=== PATIENT | male | born 1965 | race Two or more races ===

== ENCOUNTER 2021-01-26 10:33 | Inpatient (IN) | payer OTHER, MEDICAID ==
[~2021-01-26] VITALS: Ht 175.3 cm; Wt 93.4 kg
[2021-01-26 11:12] LABS: Basophils # (auto) 0 10 ^3/uL (0-0.2); Basophils % (auto) 0.1 % (0.0-2.0); Eosinophils # (auto) 0 10 ^3/uL (0-0.8); Hematocrit 46.4 % (41.0-53.0); Hemoglobin 15.2 g/dL (13.5-17.5); Lymphocytes # (auto) 0.5 10 ^3/uL (0.4-5.4); Lymphocytes % (auto) 9.7 % (10.0-50.0); Mean Corpuscular Hemoglobin 28.6 pg (28.0-32.0); Mean Corpuscular Hgb Conc. 32.9 g/dL (32.0-36.0); Mean Corpuscular Volume 87.1 fL (80.0-100.0); Monocytes # (auto) 0.3 10 ^3/uL (0-1.3); Monocytes % (auto) 5.2 % (0.0-12.0); Neutrophils # (auto) 4.7 10 ^3/uL (1.6-8.6); Nucleated Red Blood Cells % 0.3 %; Red Blood Cells 5.32 10^6/uL (4.5-5.90); Red Cell Distribution Width 13.6 % (11.8-14.3); White Blood Cell 5.5 10^3/uL (4.4-10.8)
[2021-01-26 11:30] LABS: Anion Gap 8 (5-15); BUN/Creatinine Ratio 12.9; Blood Urea Nitrogen 15 mg/dL (7-18); Calcium 8.1 mg/dL (8.5-10.1); Carbon Dioxide 25 mmol/L (21-32); Chloride 106 mmol/L (98-107); GFR African American 84 mL/min; GFR Non-African American 70 mL/min; Glucose 96 mg/dL (74-106); Magnesium 2.3 mg/dL (1.6-2.6); Potassium 3.7 mmol/L (3.5-5.1); Sodium 139 mmol/L (136-145)
[2021-01-26 11:35] LABS: Alanine Aminotransferase 42 U/L (16-61); Alkaline Phosphatase 104 U/L (45-117); Aspartate Aminotransferase 42 U/L (15-37); Bilirubin, Total 0.4 mg/dL (0.2-1.0); Total Protein 7.6 g/dL (6.4-8.2)
[2021-01-26] MEDS ORDERED: SODIUM CHLORIDE 0.9% 1,000 ML IV ONE (14:30)
[2021-01-26] MEDS ORDERED: CHOLECALCIFEROL (VITD3) 2,000 UNIT CAP/TAB PO ONE ×2 (14:45→17:15)
[2021-01-26] MEDS ORDERED: ZINC SULFATE 220mg CAP or TAB PO ONE (14:45)
[2021-01-26] MEDS ORDERED: DexAMETHasone SOD PHOS 10MG/1ML VIAL INJ IV ONE ×2 (14:45→17:15)
[2021-01-26] MEDS ORDERED: cefTRIAXone 1GM/50ML D5W 50 ML IV ONE ×2 (14:45→17:15)
[2021-01-26] MEDS ORDERED: ASCORBIC ACID 500 MG TAB PO ONE ×2 (14:45→17:15)
[2021-01-26] MEDS ORDERED: AZITHROMYCIN 500MG/ 250ML 250 ML IV ONE ×2 (14:45→17:15)
[2021-01-26 15:25] LABS: INR 0.99 (0.9-1.15); Partial Thromboplastin Time 27.3 sec (23.6-33.0)
[2021-01-26 17:25] LABS: Urine Bacteria FEW /hpf (None Seen); Urine Blood Negative /uL (Negative); Urine Hyaline Cast FEW /lpf (0 - 2); Urine Mucus FEW (None Seen); Urine Specific Gravity 1.029 (1.001-1.035); Urine WBC 5 /hpf (0 - 3)
[2021-01-26] MEDS ORDERED: hydrOXYchloroQUINE SULFATE 200 MG TAB PO ONE (18:45)
[2021-01-26] MEDS ORDERED: ONDANSETRON HCL 4 MG/2 ML VIAL IV PRN (21:00)
[2021-01-26] MEDS ORDERED: TEMAZEPAM 15 MG CAP PO PRN (21:00)
[2021-01-26] MEDS ORDERED: NITROGLYCERIN 0.4 MG SL TAB SL PRN (21:00)
[2021-01-26] MEDS ORDERED: ACETAMINOPHEN 500 MG TAB PO PRN (21:00)
[2021-01-26] MEDS ORDERED: MORPHINE SULFATE INJECTION 2 MG/ML SYRG IV PRN (21:00)
[2021-01-26] MEDS ORDERED: REMDESIVIR PER PHARMACY 0 ML IV SCH (21:00)
[2021-01-26] MEDS: BUDESONIDE (INHALATION) 180 MCG IH IN SCH (22:00)
[2021-01-26] MEDS: ENOXAPARIN SOD 40 MG/0.4 ML SYRINGE SC SCH (22:47)
[2021-01-26] MEDS: ATORVASTATIN 20 MG TAB PO SCH (22:47)
[2021-01-27 06:06] LABS: Basophils # (auto) 0 10 ^3/uL (0-0.2); Basophils % (auto) 0.4 % (0.0-2.0); Eosinophils # (auto) 0 10 ^3/uL (0-0.8); Lymphocytes # (auto) 0.4 10 ^3/uL (0.4-5.4); Lymphocytes % (auto) 9.1 % (10.0-50.0); Mean Corpuscular Hemoglobin 28.8 pg (28.0-32.0); Mean Corpuscular Hgb Conc. 33.4 g/dL (32.0-36.0); Mean Corpuscular Volume 86.3 fL (80.0-100.0); Monocytes # (auto) 0.5 10 ^3/uL (0-1.3); Monocytes % (auto) 9.4 % (0.0-12.0); Neutrophils % (auto) 81.1 % (37.0-80.0); Nucleated Red Blood Cells % 0.2 %; Red Blood Cells 5.21 10^6/uL (4.5-5.90); Red Cell Distribution Width 13.7 % (11.8-14.3); White Blood Cell 4.9 10^3/uL (4.4-10.8)
[2021-01-27 06:43] LABS: Chloride 109 mmol/L (98-107); Potassium 4.1 mmol/L (3.5-5.1); Sodium 139 mmol/L (136-145)
[2021-01-27 06:48] LABS: Alanine Aminotransferase 47 U/L (16-61); Albumin 2.9 g/dL (3.4-5.0); Anion Gap 10 (5-15); Aspartate Aminotransferase 46 U/L (15-37); BUN/Creatinine Ratio 15.7; Blood Urea Nitrogen 14 mg/dL (7-18); Calcium 8.3 mg/dL (8.5-10.1); Carbon Dioxide 20 mmol/L (21-32); GFR African American 115 mL/min; GFR Non-African American 95 mL/min; Glucose 129 mg/dL (74-106)
[2021-01-27 06:51] LABS: Alkaline Phosphatase 108 U/L (45-117); Bilirubin, Total 0.4 mg/dL (0.2-1.0); Total Protein 7.7 g/dL (6.4-8.2)
[2021-01-27] MEDS: LEVOTHYROXINE SODIUM 100 MCG TAB PO SCH (07:00)
[2021-01-27] MEDS ORDERED: REMDESIVIR 200 MG in NS 210ml LOADING DOSE ADULT IV ONE (08:00)
[2021-01-27] MEDS: cefTRIAXone 1GM/50ML D5W 50 ML IV SCH (08:52)
[2021-01-27] MEDS: ALBUTEROL SULF HFA 90MCG INH 200DOSE IN PRN ×3 (10:38→18:49)
[2021-01-27] MEDS: BUDESONIDE (INHALATION) 180 MCG IH IN SCH ×2 (10:38→18:30)
[2021-01-27] MEDS: DexAMETHasone SOD PHOS 10MG/1ML VIAL INJ IV SCH (12:00)
[2021-01-27] MEDS: CHOLECALCIFEROL (VITD3) 2,000 UNIT CAP/TAB PO SCH (12:00)
[2021-01-27] MEDS: ZINC SULFATE 220mg CAP or TAB PO SCH (12:00)
[2021-01-27] MEDS: ENOXAPARIN SOD 40 MG/0.4 ML SYRINGE SC SCH ×2 (12:00→22:27)
[2021-01-27] MEDS: AZITHROMYCIN 500MG/ 250ML 250 ML IV SCH (12:00)
[2021-01-27] MEDS: amLODIPine BESYLATE 5 MG TAB PO SCH (12:00)
[2021-01-27] MEDS: ASCORBIC ACID 1,000 MG TAB PO SCH (12:00)
[2021-01-27] MEDS ORDERED: LORazepam 2MG/ML-1ML VIAL IV PRN (13:00)
[2021-01-27 22:00] VITALS: BP 128/74
[2021-01-27] MEDS ORDERED: FLUT50SP NAS (22:25)
[2021-01-27] MEDS ORDERED: AMLO-489 PO (22:25)
[2021-01-27] MEDS ORDERED: BECL80AE11 INH (22:25)
[2021-01-27] MEDS ORDERED: LEVO100T8 PO (22:25)
[2021-01-27] MEDS ORDERED: ATOR20TA50 PO (22:25)
[2021-01-27] MEDS ORDERED: ARIP5TAB36 PO (22:25)
[2021-01-27] MEDS ORDERED: CLON0.5T10 PO (22:25)
[2021-01-27] MEDS ORDERED: SECU1INJ SC (22:25)
[2021-01-27] MEDS ORDERED: PARO1TAB33 PO (22:25)
[2021-01-27] MEDS ORDERED: CETI-120 PO (22:25)
[2021-01-27] MEDS: ATORVASTATIN 20 MG TAB PO SCH (22:27)
[2021-01-27] MEDS: ARIPIPRAZOLE 5 MG PO SCH (22:41)
[2021-01-27] MEDS: PARoxetine 20 MG TAB PO SCH (23:27)
[2021-01-28 05:00] VITALS: BP 134/91
[2021-01-28] MEDS: LEVOTHYROXINE SODIUM 100 MCG TAB PO SCH (06:38)
[2021-01-28] MEDS: BUDESONIDE (INHALATION) 180 MCG IH IN SCH ×2 (07:07→21:49)
[2021-01-28] MEDS: ALBUTEROL SULF HFA 90MCG INH 200DOSE IN PRN ×2 (07:07→21:49)
[2021-01-28] MEDS: cefTRIAXone 1GM/50ML D5W 50 ML IV SCH (08:44)
[2021-01-28 09:00] VITALS: BP 120/76
[2021-01-28] MEDS: PANTOPRAZOLE 40 MG TAB PO SCH (09:09)
[2021-01-28] MEDS: DexAMETHasone SOD PHOS 10MG/1ML VIAL INJ IV SCH (09:09)
[2021-01-28] MEDS: amLODIPine BESYLATE 5 MG TAB PO SCH (09:09)
[2021-01-28] MEDS: ZINC SULFATE 220mg CAP or TAB PO SCH (09:09)
[2021-01-28] MEDS: ENOXAPARIN SOD 40 MG/0.4 ML SYRINGE SC SCH ×2 (09:10→21:45)
[2021-01-28] MEDS: CHOLECALCIFEROL (VITD3) 2,000 UNIT CAP/TAB PO SCH (09:10)
[2021-01-28] MEDS: ASCORBIC ACID 1,000 MG TAB PO SCH (09:10)
[2021-01-28] MEDS: AZITHROMYCIN 500MG/ 250ML 250 ML IV SCH (10:53)
[2021-01-28 13:00] VITALS: BP 138/83
[2021-01-28] MEDS: REMDESIVIR 100mg 100 MG in SODIUM CHL 0.9% 230 ML IV SCH (15:37)
[2021-01-28 17:00] VITALS: BP 123/77
[2021-01-28] MEDS: ATORVASTATIN 20 MG TAB PO SCH (21:45)
[2021-01-28] MEDS: ARIPIPRAZOLE 5 MG PO SCH (21:45)
[2021-01-28] MEDS: PARoxetine 20 MG TAB PO SCH (21:45)
[2021-01-28] MEDS: clonazePAM 0.5 MG TAB PO PRN (21:48)
[2021-01-28 22:00] VITALS: BP 140/87
[2021-01-28] MEDS ORDERED: TOCILIZUMAB 400 MG in SODIUM CHL 0.9% 80 ML IV SCH (22:00)
[2021-01-29 05:00] VITALS: BP 148/78
[2021-01-29] MEDS: LEVOTHYROXINE SODIUM 100 MCG TAB PO SCH (06:43)
[2021-01-29 06:48] LABS: Basophils # (auto) 0 10 ^3/uL (0-0.2); Basophils % (auto) 0.1 % (0.0-2.0); Eosinophils # (auto) 0 10 ^3/uL (0-0.8); Hematocrit 46.3 % (41.0-53.0); Hemoglobin 15.6 g/dL (13.5-17.5); Lymphocytes # (auto) 0.5 10 ^3/uL (0.4-5.4); Lymphocytes % (auto) 7.1 % (10.0-50.0); Mean Corpuscular Hgb Conc. 33.6 g/dL (32.0-36.0); Mean Corpuscular Volume 86.1 fL (80.0-100.0); Monocytes # (auto) 0.7 10 ^3/uL (0-1.3); Monocytes % (auto) 8.6 % (0.0-12.0); Neutrophils # (auto) 6.4 10 ^3/uL (1.6-8.6); Neutrophils % (auto) 84.2 % (37.0-80.0); Nucleated Red Blood Cells % 0.2 %; Red Blood Cells 5.38 10^6/uL (4.5-5.90); Red Cell Distribution Width 13.8 % (11.8-14.3); White Blood Cell 7.6 10^3/uL (4.4-10.8)
[2021-01-29 06:55] LABS: Ferritin 680.3 ng/mL (10-322); Free T4 (Free Thyroxine) 0.91 ng/dL (0.89-1.76)
[2021-01-29 07:02] LABS: Albumin 2.7 g/dL (3.4-5.0); BUN/Creatinine Ratio 19.2; Bilirubin, Total 0.5 mg/dL (0.2-1.0); CRP High Sensitivity 4.24 mg/dL (< 0.3); Calcium 8.5 mg/dL (8.5-10.1); Total Protein 7.3 g/dL (6.4-8.2)
[2021-01-29] MEDS: ALBUTEROL SULF HFA 90MCG INH 200DOSE IN PRN ×2 (07:20→22:14)
[2021-01-29] MEDS: BUDESONIDE (INHALATION) 180 MCG IH IN SCH ×2 (07:21→22:14)
[2021-01-29 09:00] VITALS: BP 130/83
[2021-01-29] MEDS: amLODIPine BESYLATE 5 MG TAB PO SCH (09:46)
[2021-01-29] MEDS: DexAMETHasone SOD PHOS 10MG/1ML VIAL INJ IV SCH (09:46)
[2021-01-29] MEDS: ZINC SULFATE 220mg CAP or TAB PO SCH (09:46)
[2021-01-29] MEDS: cefTRIAXone 1GM/50ML D5W 50 ML IV SCH (09:46)
[2021-01-29] MEDS: CHOLECALCIFEROL (VITD3) 2,000 UNIT CAP/TAB PO SCH (09:47)
[2021-01-29] MEDS: ASCORBIC ACID 1,000 MG TAB PO SCH (09:47)
[2021-01-29] MEDS: PANTOPRAZOLE 40 MG TAB PO SCH (09:47)
[2021-01-29] MEDS: ENOXAPARIN SOD 40 MG/0.4 ML SYRINGE SC SCH ×2 (09:47→21:29)
[2021-01-29] MEDS: AZITHROMYCIN 500MG/ 250ML 250 ML IV SCH (10:49)
[2021-01-29] MEDS ORDERED: FUROSEMIDE 20 MG/2 ML VIAL IV ONE (11:15)
[2021-01-29] MEDS ORDERED: POTASSIUM CHL 20 Meq TABLET PO ONE (11:15)
[2021-01-29 13:00] VITALS: BP 109/75
[2021-01-29] MEDS: REMDESIVIR 100mg 100 MG in SODIUM CHL 0.9% 230 ML IV SCH (15:29)
[2021-01-29 17:00] VITALS: BP 130/75
[2021-01-29] MEDS: ARIPIPRAZOLE 5 MG PO SCH (21:26)
[2021-01-29] MEDS: ATORVASTATIN 20 MG TAB PO SCH (21:29)
[2021-01-29] MEDS: PARoxetine 20 MG TAB PO SCH (21:29)
[2021-01-29] MEDS: clonazePAM 0.5 MG TAB PO PRN (21:30)
[2021-01-29 22:00] VITALS: BP 139/84
[2021-01-30 05:00] VITALS: BP 133/80
[2021-01-30] MEDS: LEVOTHYROXINE SODIUM 100 MCG TAB PO SCH (06:18)
[2021-01-30 07:28] LABS: Basophils # (auto) 0 10 ^3/uL (0-0.2); Basophils % (auto) 0.1 % (0.0-2.0); Eosinophils # (auto) 0 10 ^3/uL (0-0.8); Hemoglobin 16.5 g/dL (13.5-17.5); Lymphocytes # (auto) 0.6 10 ^3/uL (0.4-5.4); Lymphocytes % (auto) 5.3 % (10.0-50.0); Mean Corpuscular Hemoglobin 28.3 pg (28.0-32.0); Mean Corpuscular Hgb Conc. 32.4 g/dL (32.0-36.0); Mean Corpuscular Volume 87.4 fL (80.0-100.0); Monocytes # (auto) 0.8 10 ^3/uL (0-1.3); Monocytes % (auto) 6.9 % (0.0-12.0); Neutrophils % (auto) 87.7 % (37.0-80.0); Nucleated Red Blood Cells % 0.3 %; Red Blood Cells 5.84 10^6/uL (4.5-5.90); Red Cell Distribution Width 13.4 % (11.8-14.3); White Blood Cell 11.4 10^3/uL (4.4-10.8)
[2021-01-30 07:38] LABS: Albumin 2.6 g/dL (3.4-5.0); Calcium 8.4 mg/dL (8.5-10.1); Potassium 4.3 mmol/L (3.5-5.1)
[2021-01-30 07:41] LABS: Bilirubin, Total 0.5 mg/dL (0.2-1.0)
[2021-01-30 08:00] LABS: BUN/Creatinine Ratio 23.2; CRP High Sensitivity 2.7 mg/dL (< 0.3)
[2021-01-30 09:14] VITALS: BP 123/80
[2021-01-30] MEDS: ZINC SULFATE 220mg CAP or TAB PO SCH (09:32)
[2021-01-30] MEDS: cefTRIAXone 1GM/50ML D5W 50 ML IV SCH (09:32)
[2021-01-30] MEDS: DexAMETHasone SOD PHOS 10MG/1ML VIAL INJ IV SCH (09:32)
[2021-01-30] MEDS: PANTOPRAZOLE 40 MG TAB PO SCH (09:34)
[2021-01-30] MEDS: CHOLECALCIFEROL (VITD3) 2,000 UNIT CAP/TAB PO SCH (09:34)
[2021-01-30] MEDS: amLODIPine BESYLATE 5 MG TAB PO SCH (09:34)
[2021-01-30] MEDS: ASCORBIC ACID 1,000 MG TAB PO SCH (09:34)
[2021-01-30] MEDS: ENOXAPARIN SOD 40 MG/0.4 ML SYRINGE SC SCH ×2 (09:35→22:20)
[2021-01-30] MEDS: BUDESONIDE (INHALATION) 180 MCG IH IN SCH ×2 (09:46→22:50)
[2021-01-30] MEDS: ALBUTEROL SULF HFA 90MCG INH 200DOSE IN PRN ×2 (09:46→23:59)
[2021-01-30] MEDS ORDERED: SALINE 0.65 % NASAL SPRAY 45ML BOTTLE EACHNOSTRI ONE (11:00)
[2021-01-30] MEDS ORDERED: FUROSEMIDE 20 MG/2 ML VIAL IV ONE (11:00)
[2021-01-30] MEDS ORDERED: POTASSIUM CHL 20 Meq TABLET PO ONE (11:00)
[2021-01-30] MEDS: AZITHROMYCIN 500MG/ 250ML 250 ML IV SCH (11:12)
[2021-01-30 13:00] VITALS: BP 122/77
[2021-01-30] MEDS: REMDESIVIR 100mg 100 MG in SODIUM CHL 0.9% 230 ML IV SCH (16:01)
[2021-01-30 17:00] VITALS: BP 127/81
[2021-01-30] MEDS: SALINE 0.65 % NASAL SPRAY 45ML BOTTLE EACHNOSTRI SCH ×2 (17:44→22:20)
[2021-01-30] MEDS: ARIPIPRAZOLE 5 MG PO SCH (22:20)
[2021-01-30] MEDS: clonazePAM 0.5 MG TAB PO PRN (22:20)
[2021-01-30] MEDS: ATORVASTATIN 20 MG TAB PO SCH (22:20)
[2021-01-30] MEDS: PARoxetine 20 MG TAB PO SCH (22:20)
[2021-01-31 05:00] VITALS: BP 120/67
[2021-01-31] MEDS: SALINE 0.65 % NASAL SPRAY 45ML BOTTLE EACHNOSTRI SCH ×4 (06:00→21:34)
[2021-01-31] MEDS: LEVOTHYROXINE SODIUM 100 MCG TAB PO SCH (06:31)
[2021-01-31] MEDS: BUDESONIDE (INHALATION) 180 MCG IH IN SCH ×2 (07:00→22:00)
[2021-01-31] MEDS: ALBUTEROL SULF HFA 90MCG INH 200DOSE IN PRN (07:01)
[2021-01-31 09:00] VITALS: BP 113/62
[2021-01-31] MEDS: ASCORBIC ACID 1,000 MG TAB PO SCH (10:00)
[2021-01-31] MEDS: DexAMETHasone SOD PHOS 10MG/1ML VIAL INJ IV SCH (10:12)
[2021-01-31] MEDS: cefTRIAXone 1GM/50ML D5W 50 ML IV SCH (10:12)
[2021-01-31] MEDS: ZINC SULFATE 220mg CAP or TAB PO SCH (10:13)
[2021-01-31] MEDS: PANTOPRAZOLE 40 MG TAB PO SCH (10:13)
[2021-01-31] MEDS: AZITHROMYCIN 500MG/ 250ML 250 ML IV SCH (10:13)
[2021-01-31] MEDS: amLODIPine BESYLATE 5 MG TAB PO SCH (10:13)
[2021-01-31] MEDS: CHOLECALCIFEROL (VITD3) 2,000 UNIT CAP/TAB PO SCH (10:14)
[2021-01-31] MEDS: ENOXAPARIN SOD 40 MG/0.4 ML SYRINGE SC SCH ×2 (10:14→21:33)
[2021-01-31 13:00] VITALS: BP 109/74
[2021-01-31 17:00] VITALS: BP 134/75
[2021-01-31] MEDS ORDERED: TOCILIZUMAB 400 MG in SODIUM CHL 0.9% 80 ML IV ONE (17:00)
[2021-01-31] MEDS: REMDESIVIR 100mg 100 MG in SODIUM CHL 0.9% 230 ML IV SCH (17:11)
[2021-01-31] MEDS: PARoxetine 20 MG TAB PO SCH (21:33)
[2021-01-31] MEDS: ATORVASTATIN 20 MG TAB PO SCH (21:33)
[2021-01-31] MEDS: ARIPIPRAZOLE 5 MG PO SCH ×2 (21:38→22:26)
[2021-01-31 22:00] VITALS: BP 119/83
[2021-02-01 05:00] VITALS: BP 130/83
[2021-02-01] MEDS: LEVOTHYROXINE SODIUM 100 MCG TAB PO SCH (06:22)
[2021-02-01] MEDS: SALINE 0.65 % NASAL SPRAY 45ML BOTTLE EACHNOSTRI SCH ×4 (06:22→21:58)
[2021-02-01] MEDS: ALBUTEROL SULF HFA 90MCG INH 200DOSE IN PRN ×2 (06:56→22:35)
[2021-02-01] MEDS: BUDESONIDE (INHALATION) 180 MCG IH IN SCH ×2 (06:56→22:00)
[2021-02-01 09:00] VITALS: BP 124/82
[2021-02-01] MEDS: cefTRIAXone 1GM/50ML D5W 50 ML IV SCH (09:50)
[2021-02-01] MEDS: ZINC SULFATE 220mg CAP or TAB PO SCH (09:51)
[2021-02-01] MEDS: PANTOPRAZOLE 40 MG TAB PO SCH (09:51)
[2021-02-01] MEDS: DexAMETHasone SOD PHOS 10MG/1ML VIAL INJ IV SCH (09:51)
[2021-02-01] MEDS: amLODIPine BESYLATE 5 MG TAB PO SCH (09:51)
[2021-02-01] MEDS: ASCORBIC ACID 1,000 MG TAB PO SCH (09:52)
[2021-02-01] MEDS: CHOLECALCIFEROL (VITD3) 2,000 UNIT CAP/TAB PO SCH (09:52)
[2021-02-01] MEDS: ENOXAPARIN SOD 40 MG/0.4 ML SYRINGE SC SCH ×2 (09:52→21:36)
[2021-02-01] MEDS ORDERED: TOCILIZUMAB 400 MG in SODIUM CHL 0.9% 80 ML IV ONE (10:00)
[2021-02-01 13:00] VITALS: BP 119/77
[2021-02-01 17:00] VITALS: BP 122/82
[2021-02-01] MEDS ORDERED: FUROSEMIDE 40 MG/4 ML VIAL IV ONE (17:30)
[2021-02-01] MEDS ORDERED: POTASSIUM EFFERVESENT TAB 25 MEQ PO ONE (17:30)
[2021-02-01] MEDS: PARoxetine 20 MG TAB PO SCH (21:36)
[2021-02-01] MEDS: ATORVASTATIN 20 MG TAB PO SCH (21:36)
[2021-02-01] MEDS: ARIPIPRAZOLE 5 MG PO SCH (21:36)
[2021-02-01 22:00] VITALS: BP 114/66
[2021-02-02 05:00] VITALS: BP 118/75
[2021-02-02] MEDS: SALINE 0.65 % NASAL SPRAY 45ML BOTTLE EACHNOSTRI SCH ×4 (06:00→21:57)
[2021-02-02] MEDS: LEVOTHYROXINE SODIUM 100 MCG TAB PO SCH (06:33)
[2021-02-02 06:50] LABS: Basophils # (auto) 0 10 ^3/uL (0-0.2); Basophils % (auto) 0.1 % (0.0-2.0); Eosinophils # (auto) 0.1 10 ^3/uL (0-0.8); Eosinophils % (auto) 0.7 % (0.0-7.0); Hematocrit 47.9 % (41.0-53.0); Hemoglobin 16.4 g/dL (13.5-17.5); Lymphocytes # (auto) 0.4 10 ^3/uL (0.4-5.4); Lymphocytes % (auto) 4.3 % (10.0-50.0); Mean Corpuscular Hemoglobin 29.3 pg (28.0-32.0); Mean Corpuscular Hgb Conc. 34.2 g/dL (32.0-36.0); Mean Corpuscular Volume 85.6 fL (80.0-100.0); Monocytes # (auto) 0.3 10 ^3/uL (0-1.3); Neutrophils # (auto) 8.5 10 ^3/uL (1.6-8.6); Neutrophils % (auto) 91.9 % (37.0-80.0); Nucleated Red Blood Cells % 0.1 %; Red Cell Distribution Width 13.4 % (11.8-14.3); White Blood Cell 9.2 10^3/uL (4.4-10.8)
[2021-02-02 07:02] LABS: Potassium 4.4 mmol/L (3.5-5.1)
[2021-02-02 07:30] LABS: Calcium 8.7 mg/dL (8.5-10.1)
[2021-02-02] MEDS: cefTRIAXone 1GM/50ML D5W 50 ML IV SCH (08:56)
[2021-02-02 09:00] VITALS: BP 109/75
[2021-02-02] MEDS: DexAMETHasone SOD PHOS 10MG/1ML VIAL INJ IV SCH (10:25)
[2021-02-02] MEDS: ZINC SULFATE 220mg CAP or TAB PO SCH (10:27)
[2021-02-02] MEDS: FUROSEMIDE 40 MG/4 ML VIAL IV SCH (10:27)
[2021-02-02] MEDS: CHOLECALCIFEROL (VITD3) 2,000 UNIT CAP/TAB PO SCH (10:28)
[2021-02-02] MEDS: ASCORBIC ACID 1,000 MG TAB PO SCH (10:28)
[2021-02-02] MEDS: ENOXAPARIN SOD 40 MG/0.4 ML SYRINGE SC SCH ×2 (10:28→21:50)
[2021-02-02] MEDS: amLODIPine BESYLATE 5 MG TAB PO SCH (10:28)
[2021-02-02] MEDS: PANTOPRAZOLE 40 MG TAB PO SCH (10:28)
[2021-02-02] MEDS: POTASSIUM EFFERVESENT TAB 25 MEQ PO SCH (11:02)
[2021-02-02] MEDS: BUDESONIDE (INHALATION) 180 MCG IH IN SCH ×2 (11:37→21:58)
[2021-02-02] MEDS: ALBUTEROL SULF HFA 90MCG INH 200DOSE IN PRN ×2 (11:38→21:58)
[2021-02-02 13:00] VITALS: BP 116/72
[2021-02-02 17:00] VITALS: BP 131/91
[2021-02-02] MEDS: ARIPIPRAZOLE 5 MG PO SCH (21:49)
[2021-02-02] MEDS: ATORVASTATIN 20 MG TAB PO SCH (21:50)
[2021-02-02] MEDS: PARoxetine 20 MG TAB PO SCH (21:57)
[2021-02-02 22:00] VITALS: BP 124/79
[2021-02-03 05:00] VITALS: BP 110/71
[2021-02-03] MEDS: SALINE 0.65 % NASAL SPRAY 45ML BOTTLE EACHNOSTRI SCH ×4 (06:00→22:21)
[2021-02-03] MEDS: LEVOTHYROXINE SODIUM 100 MCG TAB PO SCH (06:36)
[2021-02-03] MEDS: ALBUTEROL SULF HFA 90MCG INH 200DOSE IN PRN ×2 (07:24→21:56)
[2021-02-03] MEDS: BUDESONIDE (INHALATION) 180 MCG IH IN SCH ×2 (07:25→21:56)
[2021-02-03 08:00] VITALS: BP 119/67
[2021-02-03] MEDS: cefTRIAXone 1GM/50ML D5W 50 ML IV SCH (09:57)
[2021-02-03] MEDS ORDERED: ENOXAPARIN SOD 60 MG/0.6 ML SYRINGE SC SCH (10:30)
[2021-02-03] MEDS: DexAMETHasone SOD PHOS 10MG/1ML VIAL INJ IV SCH (10:37)
[2021-02-03] MEDS: CHOLECALCIFEROL (VITD3) 2,000 UNIT CAP/TAB PO SCH (10:38)
[2021-02-03] MEDS: PANTOPRAZOLE 40 MG TAB PO SCH (10:38)
[2021-02-03] MEDS: POTASSIUM EFFERVESENT TAB 25 MEQ PO SCH (10:38)
[2021-02-03] MEDS: ASCORBIC ACID 1,000 MG TAB PO SCH (10:38)
[2021-02-03] MEDS: ZINC SULFATE 220mg CAP or TAB PO SCH (10:38)
[2021-02-03] MEDS: FUROSEMIDE 40 MG/4 ML VIAL IV SCH (10:39)
[2021-02-03] MEDS: amLODIPine BESYLATE 5 MG TAB PO SCH (10:39)
[2021-02-03 12:00] VITALS: BP 103/64
[2021-02-03] MEDS ORDERED: PIPERACILLIN-TAZOB 3.375GM 100 ML IV ONE (12:30)
[2021-02-03 16:00] VITALS: BP 126/86
[2021-02-03] MEDS: Ensure HIGH Protein Chocolate 8oz Bottle PO SCH (18:15)
[2021-02-03] MEDS: PIPERACILLIN-TAZOB 3.375GM 100 ML IV SCH (20:07)
[2021-02-03 22:00] VITALS: BP 124/80
[2021-02-03] MEDS: ENOXAPARIN SOD 80 MG/0.8ML SYRINGE SC SCH (22:20)
[2021-02-03] MEDS: ARIPIPRAZOLE 5 MG PO SCH (22:20)
[2021-02-03] MEDS: PARoxetine 20 MG TAB PO SCH (22:20)
[2021-02-04] MEDS: PIPERACILLIN-TAZOB 3.375GM 100 ML IV SCH ×3 (04:17→20:53)
[2021-02-04 05:00] VITALS: BP 120/77
[2021-02-04] MEDS: SALINE 0.65 % NASAL SPRAY 45ML BOTTLE EACHNOSTRI SCH ×4 (06:00→22:02)
[2021-02-04] MEDS: LEVOTHYROXINE SODIUM 100 MCG TAB PO SCH (06:32)
[2021-02-04 06:54] LABS: Basophils # (auto) 0.1 10 ^3/uL (0-0.2); Basophils % (auto) 0.7 % (0.0-2.0); Eosinophils # (auto) 0.1 10 ^3/uL (0-0.8); Eosinophils % (auto) 0.4 % (0.0-7.0); Hematocrit 45.1 % (41.0-53.0); Hemoglobin 16.1 g/dL (13.5-17.5); Lymphocytes # (auto) 0.5 10 ^3/uL (0.4-5.4); Lymphocytes % (auto) 3.7 % (10.0-50.0); Mean Corpuscular Hemoglobin 30.1 pg (28.0-32.0); Mean Corpuscular Hgb Conc. 35.7 g/dL (32.0-36.0); Mean Corpuscular Volume 84.2 fL (80.0-100.0); Monocytes # (auto) 0.5 10 ^3/uL (0-1.3); Monocytes % (auto) 3.8 % (0.0-12.0); Neutrophils # (auto) 12.1 10 ^3/uL (1.6-8.6); Neutrophils % (auto) 91.4 % (37.0-80.0); Nucleated Red Blood Cells % 0.7 %; Red Blood Cells 5.36 10^6/uL (4.5-5.90); Red Cell Distribution Width 12.9 % (11.8-14.3); White Blood Cell 13.2 10^3/uL (4.4-10.8)
[2021-02-04 07:10] LABS: Potassium 3.5 mmol/L (3.5-5.1)
[2021-02-04 07:15] LABS: BUN/Creatinine Ratio 19.6; Calcium 8.5 mg/dL (8.5-10.1)
[2021-02-04] MEDS: Ensure HIGH Protein Chocolate 8oz Bottle PO SCH ×3 (08:00→18:30)
[2021-02-04 08:48] VITALS: BP 127/76
[2021-02-04] MEDS: DexAMETHasone SOD PHOS 10MG/1ML VIAL INJ IV SCH (09:49)
[2021-02-04] MEDS: ZINC SULFATE 220mg CAP or TAB PO SCH (09:49)
[2021-02-04] MEDS: POTASSIUM EFFERVESENT TAB 25 MEQ PO SCH (09:49)
[2021-02-04] MEDS: ENOXAPARIN SOD 80 MG/0.8ML SYRINGE SC SCH ×2 (09:50→20:53)
[2021-02-04] MEDS: ASCORBIC ACID 1,000 MG TAB PO SCH (09:50)
[2021-02-04] MEDS: CHOLECALCIFEROL (VITD3) 2,000 UNIT CAP/TAB PO SCH (09:50)
[2021-02-04] MEDS: PANTOPRAZOLE 40 MG TAB PO SCH (09:50)
[2021-02-04] MEDS: FUROSEMIDE 40 MG/4 ML VIAL IV SCH (09:52)
[2021-02-04 12:15] VITALS: BP 117/72
[2021-02-04] MEDS: BUDESONIDE (INHALATION) 180 MCG IH IN SCH (14:01)
[2021-02-04] MEDS: ALBUTEROL SULF HFA 90MCG INH 200DOSE IN PRN (14:01)
[2021-02-04 17:06] VITALS: BP 116/75
[2021-02-04] MEDS: PARoxetine 20 MG TAB PO SCH (20:53)
[2021-02-04] MEDS: ARIPIPRAZOLE 5 MG PO SCH (20:53)
[2021-02-04 22:00] VITALS: BP 100/60
[2021-02-05] MEDS: PIPERACILLIN-TAZOB 3.375GM 100 ML IV SCH ×3 (04:00→20:48)
[2021-02-05 05:00] VITALS: BP 112/59
[2021-02-05] MEDS: LEVOTHYROXINE SODIUM 100 MCG TAB PO SCH (06:07)
[2021-02-05] MEDS: SALINE 0.65 % NASAL SPRAY 45ML BOTTLE EACHNOSTRI SCH ×4 (06:07→20:54)
[2021-02-05] MEDS: ALBUTEROL SULF HFA 90MCG INH 200DOSE IN PRN ×2 (06:58→23:24)
[2021-02-05] MEDS: BUDESONIDE (INHALATION) 180 MCG IH IN SCH ×2 (06:58→21:35)
[2021-02-05] MEDS: Ensure HIGH Protein Chocolate 8oz Bottle PO SCH ×3 (08:00→18:56)
[2021-02-05 09:00] VITALS: BP 105/77
[2021-02-05] MEDS: DexAMETHasone SOD PHOS 10MG/1ML VIAL INJ IV SCH (09:37)
[2021-02-05] MEDS: ZINC SULFATE 220mg CAP or TAB PO SCH (09:38)
[2021-02-05] MEDS: PANTOPRAZOLE 40 MG TAB PO SCH (09:38)
[2021-02-05] MEDS: POTASSIUM EFFERVESENT TAB 25 MEQ PO SCH (09:38)
[2021-02-05] MEDS: CHOLECALCIFEROL (VITD3) 2,000 UNIT CAP/TAB PO SCH (09:38)
[2021-02-05] MEDS: ASCORBIC ACID 1,000 MG TAB PO SCH (09:38)
[2021-02-05] MEDS: FUROSEMIDE 40 MG/4 ML VIAL IV SCH (09:38)
[2021-02-05] MEDS: ENOXAPARIN SOD 80 MG/0.8ML SYRINGE SC SCH ×2 (09:39→20:55)
[2021-02-05 13:00] VITALS: BP 110/70
[2021-02-05 17:00] VITALS: BP 119/80
[2021-02-05] MEDS: ARIPIPRAZOLE 5 MG PO SCH (20:54)
[2021-02-05] MEDS: PARoxetine 20 MG TAB PO SCH (20:54)
[2021-02-05 22:00] VITALS: BP 97/63
[2021-02-06] MEDS: PIPERACILLIN-TAZOB 3.375GM 100 ML IV SCH ×3 (04:12→20:00)
[2021-02-06 05:00] VITALS: BP 103/59
[2021-02-06] MEDS: LEVOTHYROXINE SODIUM 100 MCG TAB PO SCH (06:18)
[2021-02-06] MEDS: SALINE 0.65 % NASAL SPRAY 45ML BOTTLE EACHNOSTRI SCH ×4 (06:18→22:00)
[2021-02-06] MEDS: BUDESONIDE (INHALATION) 180 MCG IH IN SCH ×2 (07:52→20:31)
[2021-02-06] MEDS: ALBUTEROL SULF HFA 90MCG INH 200DOSE IN PRN ×2 (07:52→20:31)
[2021-02-06] MEDS: Ensure HIGH Protein Chocolate 8oz Bottle PO SCH ×3 (08:00→17:55)
[2021-02-06 09:00] VITALS: BP 111/79
[2021-02-06] MEDS: FUROSEMIDE 40 MG/4 ML VIAL IV SCH (10:56)
[2021-02-06] MEDS: DexAMETHasone SOD PHOS 10MG/1ML VIAL INJ IV SCH (10:56)
[2021-02-06] MEDS: ZINC SULFATE 220mg CAP or TAB PO SCH (10:57)
[2021-02-06] MEDS: ASCORBIC ACID 1,000 MG TAB PO SCH (10:57)
[2021-02-06] MEDS: POTASSIUM EFFERVESENT TAB 25 MEQ PO SCH (10:57)
[2021-02-06] MEDS: PANTOPRAZOLE 40 MG TAB PO SCH (10:57)
[2021-02-06] MEDS: ENOXAPARIN SOD 80 MG/0.8ML SYRINGE SC SCH ×2 (10:58→22:02)
[2021-02-06] MEDS: CHOLECALCIFEROL (VITD3) 2,000 UNIT CAP/TAB PO SCH (10:58)
[2021-02-06 13:00] VITALS: BP 114/78
[2021-02-06 17:00] VITALS: BP 109/66
[2021-02-06] MEDS: DexAMETHasone SOD PHOS 4 MG/1ML SDV INJ IV SCH (22:02)
[2021-02-06] MEDS: PARoxetine 20 MG TAB PO SCH (22:02)
[2021-02-06] MEDS: ARIPIPRAZOLE 5 MG PO SCH (22:02)
[2021-02-06 22:42] VITALS: BP 114/78
[2021-02-07] MEDS: PIPERACILLIN-TAZOB 3.375GM 100 ML IV SCH ×3 (05:00→20:11)
[2021-02-07 05:17] VITALS: BP 107/73
[2021-02-07] MEDS: ALBUTEROL SULF HFA 90MCG INH 200DOSE IN PRN ×2 (05:59→22:44)
[2021-02-07] MEDS: BUDESONIDE (INHALATION) 180 MCG IH IN SCH ×2 (05:59→22:00)
[2021-02-07] MEDS: SALINE 0.65 % NASAL SPRAY 45ML BOTTLE EACHNOSTRI SCH ×4 (06:00→21:40)
[2021-02-07] MEDS: LEVOTHYROXINE SODIUM 100 MCG TAB PO SCH (06:33)
[2021-02-07 09:00] VITALS: BP 119/70
[2021-02-07] MEDS: Ensure HIGH Protein Chocolate 8oz Bottle PO SCH ×3 (09:18→17:11)
[2021-02-07] MEDS: DexAMETHasone SOD PHOS 4 MG/1ML SDV INJ IV SCH ×2 (09:42→21:40)
[2021-02-07] MEDS: FUROSEMIDE 40 MG/4 ML VIAL IV SCH (09:43)
[2021-02-07] MEDS: ZINC SULFATE 220mg CAP or TAB PO SCH (09:43)
[2021-02-07] MEDS: ASCORBIC ACID 1,000 MG TAB PO SCH (09:44)
[2021-02-07] MEDS: PANTOPRAZOLE 40 MG TAB PO SCH (09:44)
[2021-02-07] MEDS: POTASSIUM EFFERVESENT TAB 25 MEQ PO SCH (09:44)
[2021-02-07] MEDS: CHOLECALCIFEROL (VITD3) 2,000 UNIT CAP/TAB PO SCH (09:44)
[2021-02-07] MEDS: ENOXAPARIN SOD 80 MG/0.8ML SYRINGE SC SCH ×2 (09:45→21:40)
[2021-02-07] MEDS ORDERED: FUROSEMIDE 20 MG/2 ML VIAL IV ONE (12:00)
[2021-02-07] MEDS ORDERED: POTASSIUM CHL 20 Meq TABLET PO ONE (12:00)
[2021-02-07 13:00] VITALS: BP 118/75
[2021-02-07 17:00] VITALS: BP 109/69
[2021-02-07] MEDS: ARIPIPRAZOLE 5 MG PO SCH (21:40)
[2021-02-07] MEDS: PARoxetine 20 MG TAB PO SCH (21:40)
[2021-02-07 23:05] VITALS: BP 115/69
[2021-02-08 00:13] VITALS: BP 115/69
[2021-02-08] MEDS: PIPERACILLIN-TAZOB 3.375GM 100 ML IV SCH ×3 (04:00→20:03)
[2021-02-08 05:20] VITALS: BP 125/71
[2021-02-08] MEDS: SALINE 0.65 % NASAL SPRAY 45ML BOTTLE EACHNOSTRI SCH ×4 (06:00→22:36)
[2021-02-08] MEDS: LEVOTHYROXINE SODIUM 100 MCG TAB PO SCH (06:13)
[2021-02-08] MEDS: BUDESONIDE (INHALATION) 180 MCG IH IN SCH ×2 (06:58→20:55)
[2021-02-08] MEDS: ALBUTEROL SULF HFA 90MCG INH 200DOSE IN PRN (06:58)
[2021-02-08 07:00] LABS: Basophils # (auto) 0 10 ^3/uL (0-0.2); Basophils % (auto) 0.3 % (0.0-2.0); Eosinophils # (auto) 0 10 ^3/uL (0-0.8); Hematocrit 47.9 % (41.0-53.0); Lymphocytes # (auto) 0.8 10 ^3/uL (0.4-5.4); Lymphocytes % (auto) 4.3 % (10.0-50.0); Mean Corpuscular Hemoglobin 28.8 pg (28.0-32.0); Mean Corpuscular Hgb Conc. 33.5 g/dL (32.0-36.0); Monocytes # (auto) 1.1 10 ^3/uL (0-1.3); Monocytes % (auto) 5.9 % (0.0-12.0); Neutrophils # (auto) 16.9 10 ^3/uL (1.6-8.6); Neutrophils % (auto) 89.5 % (37.0-80.0); Nucleated Red Blood Cells % 0.2 %; Red Blood Cells 5.57 10^6/uL (4.5-5.90); White Blood Cell 18.9 10^3/uL (4.4-10.8)
[2021-02-08 07:31] LABS: Potassium 3.6 mmol/L (3.5-5.1)
[2021-02-08 07:43] LABS: Albumin 2.9 g/dL (3.4-5.0); BUN/Creatinine Ratio 29.3; Calcium 8.9 mg/dL (8.5-10.1)
[2021-02-08 07:52] LABS: Bilirubin, Total 0.6 mg/dL (0.2-1.0); Total Protein 6.9 g/dL (6.4-8.2)
[2021-02-08 09:00] VITALS: BP 114/68
[2021-02-08] MEDS: DexAMETHasone SOD PHOS 4 MG/1ML SDV INJ IV SCH ×2 (09:58→22:35)
[2021-02-08] MEDS: Ensure HIGH Protein Chocolate 8oz Bottle PO SCH ×3 (09:58→18:00)
[2021-02-08] MEDS: CHOLECALCIFEROL (VITD3) 2,000 UNIT CAP/TAB PO SCH (09:59)
[2021-02-08] MEDS: ASCORBIC ACID 1,000 MG TAB PO SCH (09:59)
[2021-02-08] MEDS: PANTOPRAZOLE 40 MG TAB PO SCH (09:59)
[2021-02-08] MEDS: FUROSEMIDE 40 MG/4 ML VIAL IV SCH (09:59)
[2021-02-08] MEDS: POTASSIUM EFFERVESENT TAB 25 MEQ PO SCH (09:59)
[2021-02-08] MEDS: ZINC SULFATE 220mg CAP or TAB PO SCH (09:59)
[2021-02-08] MEDS: ENOXAPARIN SOD 80 MG/0.8ML SYRINGE SC SCH ×2 (10:00→22:35)
[2021-02-08 13:00] VITALS: BP 111/75
[2021-02-08 17:00] VITALS: BP 113/81
[2021-02-08 21:47] VITALS: BP 127/75
[2021-02-08] MEDS: PARoxetine 20 MG TAB PO SCH (22:35)
[2021-02-08] MEDS: ARIPIPRAZOLE 5 MG PO SCH (22:36)
[2021-02-09] MEDS: PIPERACILLIN-TAZOB 3.375GM 100 ML IV SCH ×3 (04:41→19:59)
[2021-02-09] MEDS: SALINE 0.65 % NASAL SPRAY 45ML BOTTLE EACHNOSTRI SCH ×4 (05:39→21:35)
[2021-02-09 06:00] VITALS: BP 123/85
[2021-02-09] MEDS: LEVOTHYROXINE SODIUM 100 MCG TAB PO SCH (06:09)
[2021-02-09 07:38] LABS: Basophils # (auto) 0 10 ^3/uL (0-0.2); Basophils % (auto) 0.1 % (0.0-2.0); Eosinophils # (auto) 0 10 ^3/uL (0-0.8); Hematocrit 47.7 % (41.0-53.0); Hemoglobin 15.7 g/dL (13.5-17.5); Lymphocytes # (auto) 0.8 10 ^3/uL (0.4-5.4); Lymphocytes % (auto) 4.5 % (10.0-50.0); Mean Corpuscular Hemoglobin 28.4 pg (28.0-32.0); Mean Corpuscular Hgb Conc. 32.9 g/dL (32.0-36.0); Mean Corpuscular Volume 86.3 fL (80.0-100.0); Monocytes # (auto) 1.2 10 ^3/uL (0-1.3); Monocytes % (auto) 6.7 % (0.0-12.0); Neutrophils # (auto) 15.3 10 ^3/uL (1.6-8.6); Neutrophils % (auto) 88.7 % (37.0-80.0); Red Blood Cells 5.53 10^6/uL (4.5-5.90); Red Cell Distribution Width 13.2 % (11.8-14.3); White Blood Cell 17.3 10^3/uL (4.4-10.8)
[2021-02-09 07:54] LABS: Albumin 3.2 g/dL (3.4-5.0); Calcium 8.6 mg/dL (8.5-10.1); Potassium 3.4 mmol/L (3.5-5.1)
[2021-02-09 07:58] LABS: BUN/Creatinine Ratio 29.5; Bilirubin, Total 0.7 mg/dL (0.2-1.0)
[2021-02-09] MEDS: ALBUTEROL SULF HFA 90MCG INH 200DOSE IN PRN ×2 (08:13→20:12)
[2021-02-09] MEDS: BUDESONIDE (INHALATION) 180 MCG IH IN SCH ×2 (08:13→20:11)
[2021-02-09 09:00] VITALS: BP 114/81
[2021-02-09] MEDS: DexAMETHasone SOD PHOS 4 MG/1ML SDV INJ IV SCH ×2 (09:45→21:34)
[2021-02-09] MEDS: Ensure HIGH Protein Chocolate 8oz Bottle PO SCH ×3 (09:45→18:20)
[2021-02-09] MEDS: FUROSEMIDE 40 MG/4 ML VIAL IV SCH (09:45)
[2021-02-09] MEDS: ASCORBIC ACID 1,000 MG TAB PO SCH (09:46)
[2021-02-09] MEDS: POTASSIUM EFFERVESENT TAB 25 MEQ PO SCH (09:46)
[2021-02-09] MEDS: CHOLECALCIFEROL (VITD3) 2,000 UNIT CAP/TAB PO SCH (09:46)
[2021-02-09] MEDS: ZINC SULFATE 220mg CAP or TAB PO SCH (09:46)
[2021-02-09] MEDS: ENOXAPARIN SOD 80 MG/0.8ML SYRINGE SC SCH ×2 (09:46→21:34)
[2021-02-09] MEDS: PANTOPRAZOLE 40 MG TAB PO SCH (09:46)
[2021-02-09 11:24] LABS: Urine Bacteria NONE SEEN /hpf (None Seen); Urine WBC 1 /hpf (0 - 3)
[2021-02-09 13:00] VITALS: BP 109/72
[2021-02-09] MEDS ORDERED: POTASSIUM CHLORIDE 8 MEQ TAB PO ONE (15:45)
[2021-02-09 17:00] VITALS: BP 117/76
[2021-02-09] MEDS: clonazePAM 0.5 MG TAB PO PRN (21:34)
[2021-02-09] MEDS: PARoxetine 20 MG TAB PO SCH (21:34)
[2021-02-09] MEDS: ARIPIPRAZOLE 5 MG PO SCH (21:35)
[2021-02-09 21:47] VITALS: BP 122/77
[2021-02-10] VITALS (7 sets, daily range): BP systolic 96–119; BP diastolic 62–82
[2021-02-10] MEDS: PIPERACILLIN-TAZOB 3.375GM 100 ML IV SCH ×3 (03:24→20:51)
[2021-02-10] MEDS: SALINE 0.65 % NASAL SPRAY 45ML BOTTLE EACHNOSTRI SCH ×4 (06:06→20:51)
[2021-02-10] MEDS: LEVOTHYROXINE SODIUM 100 MCG TAB PO SCH (06:07)
[2021-02-10] MEDS: ALBUTEROL SULF HFA 90MCG INH 200DOSE IN PRN ×2 (07:13→22:11)
[2021-02-10] MEDS: BUDESONIDE (INHALATION) 180 MCG IH IN SCH ×2 (07:13→22:11)
[2021-02-10 07:30] LABS: Basophils # (auto) 0 10 ^3/uL (0-0.2); Eosinophils # (auto) 0 10 ^3/uL (0-0.8); Eosinophils % (auto) 0.1 % (0.0-7.0); Hematocrit 45.3 % (41.0-53.0); Hemoglobin 14.9 g/dL (13.5-17.5); Lymphocytes # (auto) 0.8 10 ^3/uL (0.4-5.4); Lymphocytes % (auto) 5.7 % (10.0-50.0); Mean Corpuscular Hemoglobin 28.6 pg (28.0-32.0); Mean Corpuscular Hgb Conc. 32.9 g/dL (32.0-36.0); Mean Corpuscular Volume 86.9 fL (80.0-100.0); Monocytes # (auto) 1.1 10 ^3/uL (0-1.3); Monocytes % (auto) 8.1 % (0.0-12.0); Neutrophils # (auto) 12.2 10 ^3/uL (1.6-8.6); Neutrophils % (auto) 86.1 % (37.0-80.0); Nucleated Red Blood Cells % 0.1 %; Red Blood Cells 5.21 10^6/uL (4.5-5.90); Red Cell Distribution Width 13.1 % (11.8-14.3); White Blood Cell 14.1 10^3/uL (4.4-10.8)
[2021-02-10 07:52] LABS: Albumin 2.8 g/dL (3.4-5.0); Calcium 8.6 mg/dL (8.5-10.1); Potassium 3.5 mmol/L (3.5-5.1)
[2021-02-10 07:55] LABS: BUN/Creatinine Ratio 29.4; Bilirubin, Total 0.6 mg/dL (0.2-1.0); Total Protein 6.3 g/dL (6.4-8.2)
[2021-02-10] MEDS: Ensure HIGH Protein Chocolate 8oz Bottle PO SCH ×3 (08:00→18:00)
[2021-02-10] MEDS: DexAMETHasone SOD PHOS 4 MG/1ML SDV INJ IV SCH ×2 (10:12→20:51)
[2021-02-10] MEDS: PANTOPRAZOLE 40 MG TAB PO SCH (10:13)
[2021-02-10] MEDS: ZINC SULFATE 220mg CAP or TAB PO SCH (10:13)
[2021-02-10] MEDS: ENOXAPARIN SOD 80 MG/0.8ML SYRINGE SC SCH ×2 (10:13→20:53)
[2021-02-10] MEDS: CHOLECALCIFEROL (VITD3) 2,000 UNIT CAP/TAB PO SCH (10:13)
[2021-02-10] MEDS: FUROSEMIDE 40 MG/4 ML VIAL IV SCH (10:13)
[2021-02-10] MEDS: ASCORBIC ACID 1,000 MG TAB PO SCH (10:13)
[2021-02-10] MEDS: POTASSIUM EFFERVESENT TAB 25 MEQ PO SCH (10:13)
[2021-02-10] MEDS ORDERED: ALPRAZolam 0.25 MG TAB PO PRN (12:15)
[2021-02-10] MEDS: ALPRAZolam 0.25 MG TAB PO PRN (12:58)
[2021-02-10] MEDS ORDERED: clonazePAM 0.5 MG TAB PO PRN (13:00)
[2021-02-10] MEDS: ARIPIPRAZOLE 5 MG PO SCH (20:52)
[2021-02-10] MEDS: PARoxetine 20 MG TAB PO SCH (20:52)
[2021-02-11] MEDS: PIPERACILLIN-TAZOB 3.375GM 100 ML IV SCH ×3 (04:10→20:28)
[2021-02-11 05:00] VITALS: BP 130/75
[2021-02-11] MEDS: LEVOTHYROXINE SODIUM 100 MCG TAB PO SCH (06:21)
[2021-02-11] MEDS: SALINE 0.65 % NASAL SPRAY 45ML BOTTLE EACHNOSTRI SCH ×4 (06:21→20:51)
[2021-02-11] MEDS: ALBUTEROL SULF HFA 90MCG INH 200DOSE IN PRN ×2 (06:52→22:20)
[2021-02-11] MEDS: BUDESONIDE (INHALATION) 180 MCG IH IN SCH ×2 (06:53→22:20)
[2021-02-11] MEDS: FUROSEMIDE 40 MG/4 ML VIAL IV SCH (08:46)
[2021-02-11] MEDS: Ensure HIGH Protein Chocolate 8oz Bottle PO SCH ×3 (08:46→18:12)
[2021-02-11] MEDS: DexAMETHasone SOD PHOS 4 MG/1ML SDV INJ IV SCH ×2 (08:46→21:33)
[2021-02-11] MEDS: POTASSIUM EFFERVESENT TAB 25 MEQ PO SCH (08:47)
[2021-02-11] MEDS: ENOXAPARIN SOD 80 MG/0.8ML SYRINGE SC SCH ×2 (08:47→21:34)
[2021-02-11] MEDS: CHOLECALCIFEROL (VITD3) 2,000 UNIT CAP/TAB PO SCH (08:47)
[2021-02-11] MEDS: ZINC SULFATE 220mg CAP or TAB PO SCH (08:47)
[2021-02-11] MEDS: PANTOPRAZOLE 40 MG TAB PO SCH (08:47)
[2021-02-11] MEDS: ASCORBIC ACID 1,000 MG TAB PO SCH (08:47)
[2021-02-11] MEDS: ALPRAZolam 0.25 MG TAB PO PRN (08:51)
[2021-02-11 09:00] VITALS: BP 116/74
[2021-02-11 13:00] VITALS: BP 126/75
[2021-02-11 17:00] VITALS: BP 109/68
[2021-02-11] MEDS: ARIPIPRAZOLE 5 MG PO SCH (21:34)
[2021-02-11] MEDS: PARoxetine 20 MG TAB PO SCH (21:34)
[2021-02-11 22:07] VITALS: BP 121/72
[2021-02-12] MEDS: PIPERACILLIN-TAZOB 3.375GM 100 ML IV SCH ×3 (04:24→20:21)
[2021-02-12 05:00] VITALS: BP 122/73
[2021-02-12 05:49] LABS: Basophils # (auto) 0 10 ^3/uL (0-0.2); Basophils % (auto) 0.1 % (0.0-2.0); Eosinophils # (auto) 0 10 ^3/uL (0-0.8); Eosinophils % (auto) 0.1 % (0.0-7.0); Hematocrit 44.9 % (41.0-53.0); Hemoglobin 14.6 g/dL (13.5-17.5); Lymphocytes # (auto) 0.9 10 ^3/uL (0.4-5.4); Lymphocytes % (auto) 6.3 % (10.0-50.0); Mean Corpuscular Hemoglobin 28.3 pg (28.0-32.0); Mean Corpuscular Hgb Conc. 32.6 g/dL (32.0-36.0); Mean Corpuscular Volume 86.9 fL (80.0-100.0); Monocytes % (auto) 7.6 % (0.0-12.0); Neutrophils # (auto) 11.6 10 ^3/uL (1.6-8.6); Neutrophils % (auto) 85.9 % (37.0-80.0); Red Blood Cells 5.17 10^6/uL (4.5-5.90); Red Cell Distribution Width 13.4 % (11.8-14.3); White Blood Cell 13.6 10^3/uL (4.4-10.8)
[2021-02-12 06:18] LABS: BUN/Creatinine Ratio 33.7; Calcium 8.8 mg/dL (8.5-10.1); Potassium 3.8 mmol/L (3.5-5.1)
[2021-02-12] MEDS: LEVOTHYROXINE SODIUM 100 MCG TAB PO SCH (06:35)
[2021-02-12] MEDS: SALINE 0.65 % NASAL SPRAY 45ML BOTTLE EACHNOSTRI SCH ×4 (06:36→21:42)
[2021-02-12] MEDS: ALBUTEROL SULF HFA 90MCG INH 200DOSE IN PRN ×2 (07:06→21:12)
[2021-02-12] MEDS: BUDESONIDE (INHALATION) 180 MCG IH IN SCH ×2 (07:07→21:11)
[2021-02-12] MEDS: Ensure HIGH Protein Chocolate 8oz Bottle PO SCH ×3 (08:00→18:16)
[2021-02-12 10:13] VITALS: BP 107/67
[2021-02-12] MEDS: DexAMETHasone SOD PHOS 4 MG/1ML SDV INJ IV SCH ×2 (10:30→21:42)
[2021-02-12] MEDS: CHOLECALCIFEROL (VITD3) 2,000 UNIT CAP/TAB PO SCH (10:31)
[2021-02-12] MEDS: PANTOPRAZOLE 40 MG TAB PO SCH (10:31)
[2021-02-12] MEDS: ASCORBIC ACID 1,000 MG TAB PO SCH (10:31)
[2021-02-12] MEDS: ENOXAPARIN SOD 80 MG/0.8ML SYRINGE SC SCH ×2 (10:31→21:43)
[2021-02-12] MEDS: POTASSIUM EFFERVESENT TAB 25 MEQ PO SCH (10:31)
[2021-02-12] MEDS: FUROSEMIDE 40 MG/4 ML VIAL IV SCH (10:31)
[2021-02-12] MEDS: ZINC SULFATE 220mg CAP or TAB PO SCH (10:31)
[2021-02-12 13:00] VITALS: BP 103/65
[2021-02-12 17:12] VITALS: BP 120/81
[2021-02-12] MEDS: ARIPIPRAZOLE 5 MG PO SCH (21:42)
[2021-02-12] MEDS: PARoxetine 20 MG TAB PO SCH (21:43)
[2021-02-12 22:00] VITALS: BP 137/70
[2021-02-13] MEDS: PIPERACILLIN-TAZOB 3.375GM 100 ML IV SCH ×3 (04:42→20:32)
[2021-02-13 05:00] VITALS: BP 115/67
[2021-02-13] MEDS: SALINE 0.65 % NASAL SPRAY 45ML BOTTLE EACHNOSTRI SCH ×4 (06:35→21:39)
[2021-02-13] MEDS: LEVOTHYROXINE SODIUM 100 MCG TAB PO SCH (06:35)
[2021-02-13] MEDS: BUDESONIDE (INHALATION) 180 MCG IH IN SCH ×2 (08:28→20:56)
[2021-02-13] MEDS: ALBUTEROL SULF HFA 90MCG INH 200DOSE IN PRN ×2 (08:28→20:57)
[2021-02-13 09:00] VITALS: BP 117/78
[2021-02-13] MEDS: DexAMETHasone SOD PHOS 4 MG/1ML SDV INJ IV SCH ×2 (10:16→21:39)
[2021-02-13] MEDS: FUROSEMIDE 40 MG/4 ML VIAL IV SCH (10:17)
[2021-02-13] MEDS: PANTOPRAZOLE 40 MG TAB PO SCH (10:18)
[2021-02-13] MEDS: CHOLECALCIFEROL (VITD3) 2,000 UNIT CAP/TAB PO SCH (10:18)
[2021-02-13] MEDS: ASCORBIC ACID 1,000 MG TAB PO SCH (10:18)
[2021-02-13] MEDS: POTASSIUM EFFERVESENT TAB 25 MEQ PO SCH (10:18)
[2021-02-13] MEDS: ZINC SULFATE 220mg CAP or TAB PO SCH (10:18)
[2021-02-13] MEDS: ENOXAPARIN SOD 80 MG/0.8ML SYRINGE SC SCH (10:19)
[2021-02-13] MEDS: Ensure HIGH Protein Chocolate 8oz Bottle PO SCH ×3 (10:41→18:20)
[2021-02-13 13:00] VITALS: BP 98/67
[2021-02-13 17:00] VITALS: BP 118/71
[2021-02-13] MEDS: ENOXAPARIN SOD 60 MG/0.6 ML SYRINGE SC SCH (21:38)
[2021-02-13] MEDS: PARoxetine 20 MG TAB PO SCH (21:39)
[2021-02-13] MEDS: ARIPIPRAZOLE 5 MG PO SCH (21:39)
[2021-02-13 22:00] VITALS: BP 113/74
[2021-02-14] MEDS: PIPERACILLIN-TAZOB 3.375GM 100 ML IV SCH ×3 (03:56→20:54)
[2021-02-14 05:00] VITALS: BP 112/66
[2021-02-14] MEDS: SALINE 0.65 % NASAL SPRAY 45ML BOTTLE EACHNOSTRI SCH ×4 (05:24→20:54)
[2021-02-14] MEDS: LEVOTHYROXINE SODIUM 100 MCG TAB PO SCH (06:16)
[2021-02-14] MEDS: BUDESONIDE (INHALATION) 180 MCG IH IN SCH ×2 (06:34→19:58)
[2021-02-14] MEDS: ALBUTEROL SULF HFA 90MCG INH 200DOSE IN PRN (06:34)
[2021-02-14 06:39] LABS: Calcium 8.8 mg/dL (8.5-10.1); Potassium 4.3 mmol/L (3.5-5.1)
[2021-02-14 06:47] LABS: Basophils # (auto) 0 10 ^3/uL (0-0.2); Eosinophils # (auto) 0 10 ^3/uL (0-0.8); Eosinophils % (auto) 0.1 % (0.0-7.0); Hematocrit 43.6 % (41.0-53.0); Hemoglobin 14.6 g/dL (13.5-17.5); Lymphocytes # (auto) 0.9 10 ^3/uL (0.4-5.4); Lymphocytes % (auto) 7.8 % (10.0-50.0); Mean Corpuscular Hemoglobin 29.3 pg (28.0-32.0); Mean Corpuscular Hgb Conc. 33.4 g/dL (32.0-36.0); Mean Corpuscular Volume 87.9 fL (80.0-100.0); Monocytes # (auto) 0.9 10 ^3/uL (0-1.3); Neutrophils # (auto) 10.3 10 ^3/uL (1.6-8.6); Neutrophils % (auto) 85.1 % (37.0-80.0); Nucleated Red Blood Cells % 0.1 %; Red Blood Cells 4.96 10^6/uL (4.5-5.90); Red Cell Distribution Width 13.5 % (11.8-14.3); White Blood Cell 12.1 10^3/uL (4.4-10.8)
[2021-02-14 07:45] LABS: BUN/Creatinine Ratio 34.4
[2021-02-14 09:00] VITALS: BP 101/66
[2021-02-14] MEDS: Ensure HIGH Protein Chocolate 8oz Bottle PO SCH ×3 (10:59→18:17)
[2021-02-14] MEDS: FUROSEMIDE 40 MG/4 ML VIAL IV SCH (11:04)
[2021-02-14] MEDS: DexAMETHasone SOD PHOS 4 MG/1ML SDV INJ IV SCH (11:04)
[2021-02-14] MEDS: ZINC SULFATE 220mg CAP or TAB PO SCH (11:05)
[2021-02-14] MEDS: POTASSIUM EFFERVESENT TAB 25 MEQ PO SCH (11:05)
[2021-02-14] MEDS: PANTOPRAZOLE 40 MG TAB PO SCH (11:06)
[2021-02-14] MEDS: ASCORBIC ACID 1,000 MG TAB PO SCH (11:06)
[2021-02-14] MEDS: CHOLECALCIFEROL (VITD3) 2,000 UNIT CAP/TAB PO SCH (11:06)
[2021-02-14] MEDS: ENOXAPARIN SOD 60 MG/0.6 ML SYRINGE SC SCH (11:06)
[2021-02-14 13:00] VITALS: BP 123/84
[2021-02-14 17:00] VITALS: BP 112/76
[2021-02-14] MEDS: ARIPIPRAZOLE 5 MG PO SCH (20:54)
[2021-02-14] MEDS: PARoxetine 20 MG TAB PO SCH (20:54)
[2021-02-14] MEDS: ENOXAPARIN SOD 40 MG/0.4 ML SYRINGE SC SCH (20:55)
[2021-02-14 22:00] VITALS: BP 104/62
[2021-02-15 00:38] VITALS: BP 104/62
[2021-02-15] MEDS: PIPERACILLIN-TAZOB 3.375GM 100 ML IV SCH ×3 (04:59→21:34)
[2021-02-15 05:00] VITALS: BP 115/73
[2021-02-15] MEDS: SALINE 0.65 % NASAL SPRAY 45ML BOTTLE EACHNOSTRI SCH ×4 (05:48→21:35)
[2021-02-15] MEDS: BUDESONIDE (INHALATION) 180 MCG IH IN SCH ×2 (06:14→20:31)
[2021-02-15] MEDS: ALBUTEROL SULF HFA 90MCG INH 200DOSE IN PRN ×2 (06:14→20:32)
[2021-02-15] MEDS: LEVOTHYROXINE SODIUM 100 MCG TAB PO SCH (06:28)
[2021-02-15 08:00] VITALS: BP 115/73
[2021-02-15] MEDS: Ensure HIGH Protein Chocolate 8oz Bottle PO SCH ×3 (08:00→18:00)
[2021-02-15] MEDS: DexAMETHasone SOD PHOS 10MG/1ML VIAL INJ IV SCH (10:05)
[2021-02-15] MEDS: ZINC SULFATE 220mg CAP or TAB PO SCH (10:06)
[2021-02-15] MEDS: FUROSEMIDE 40 MG/4 ML VIAL IV SCH (10:06)
[2021-02-15] MEDS: POTASSIUM EFFERVESENT TAB 25 MEQ PO SCH (10:06)
[2021-02-15] MEDS: ASCORBIC ACID 1,000 MG TAB PO SCH (10:07)
[2021-02-15] MEDS: PANTOPRAZOLE 40 MG TAB PO SCH (10:07)
[2021-02-15] MEDS: CHOLECALCIFEROL (VITD3) 2,000 UNIT CAP/TAB PO SCH (10:07)
[2021-02-15] MEDS: ENOXAPARIN SOD 40 MG/0.4 ML SYRINGE SC SCH (10:08)
[2021-02-15 13:16] VITALS: BP 108/66
[2021-02-15 17:00] VITALS: BP 110/67
[2021-02-15] MEDS: PARoxetine 20 MG TAB PO SCH (21:34)
[2021-02-15] MEDS: APIXABAN 2.5 MG TAB PO SCH (21:34)
[2021-02-15] MEDS: ARIPIPRAZOLE 5 MG PO SCH (21:35)
[2021-02-15 22:00] VITALS: BP 108/69
[2021-02-16] VITALS (7 sets, daily range): BP systolic 100–127; BP diastolic 65–80
[2021-02-16] MEDS: PIPERACILLIN-TAZOB 3.375GM 100 ML IV SCH ×3 (04:17→19:51)
[2021-02-16] MEDS: ALPRAZolam 0.25 MG TAB PO PRN (04:46)
[2021-02-16] MEDS: SALINE 0.65 % NASAL SPRAY 45ML BOTTLE EACHNOSTRI SCH ×4 (06:13→21:58)
[2021-02-16] MEDS: LEVOTHYROXINE SODIUM 100 MCG TAB PO SCH (06:13)
[2021-02-16] MEDS: BUDESONIDE (INHALATION) 180 MCG IH IN SCH ×2 (07:25→20:03)
[2021-02-16] MEDS: ALBUTEROL SULF HFA 90MCG INH 200DOSE IN PRN ×2 (07:25→20:03)
[2021-02-16] MEDS: Ensure HIGH Protein Chocolate 8oz Bottle PO SCH ×3 (07:32→18:05)
[2021-02-16] MEDS: ASCORBIC ACID 1,000 MG TAB PO SCH (10:26)
[2021-02-16] MEDS: PANTOPRAZOLE 40 MG TAB PO SCH (10:26)
[2021-02-16] MEDS: APIXABAN 2.5 MG TAB PO SCH ×2 (10:26→21:58)
[2021-02-16] MEDS: DexAMETHasone SOD PHOS 10MG/1ML VIAL INJ IV SCH (10:26)
[2021-02-16] MEDS: POTASSIUM EFFERVESENT TAB 25 MEQ PO SCH (10:26)
[2021-02-16] MEDS: FUROSEMIDE 40 MG/4 ML VIAL IV SCH (10:26)
[2021-02-16] MEDS: ZINC SULFATE 220mg CAP or TAB PO SCH (10:26)
[2021-02-16] MEDS: CHOLECALCIFEROL (VITD3) 2,000 UNIT CAP/TAB PO SCH (10:27)
[2021-02-16] MEDS: ARIPIPRAZOLE 5 MG PO SCH (21:58)
[2021-02-16] MEDS: PARoxetine 20 MG TAB PO SCH (21:58)
[2021-02-17] VITALS (7 sets, daily range): BP systolic 105–122; BP diastolic 63–81
[2021-02-17] MEDS: PIPERACILLIN-TAZOB 3.375GM 100 ML IV SCH ×3 (04:23→21:03)
[2021-02-17] MEDS: SALINE 0.65 % NASAL SPRAY 45ML BOTTLE EACHNOSTRI SCH ×4 (05:15→22:00)
[2021-02-17 06:50] LABS: Basophils # (auto) 0 10 ^3/uL (0-0.2); Basophils % (auto) 0.1 % (0.0-2.0); Eosinophils # (auto) 0.1 10 ^3/uL (0-0.8); Eosinophils % (auto) 0.6 % (0.0-7.0); Hematocrit 42.8 % (41.0-53.0); Hemoglobin 14.3 g/dL (13.5-17.5); Lymphocytes # (auto) 1.3 10 ^3/uL (0.4-5.4); Lymphocytes % (auto) 9.7 % (10.0-50.0); Mean Corpuscular Hemoglobin 29.3 pg (28.0-32.0); Mean Corpuscular Hgb Conc. 33.4 g/dL (32.0-36.0); Mean Corpuscular Volume 87.6 fL (80.0-100.0); Monocytes # (auto) 1.2 10 ^3/uL (0-1.3); Monocytes % (auto) 8.5 % (0.0-12.0); Neutrophils # (auto) 11.3 10 ^3/uL (1.6-8.6); Neutrophils % (auto) 81.1 % (37.0-80.0); Nucleated Red Blood Cells % 0.1 %; Red Blood Cells 4.88 10^6/uL (4.5-5.90); Red Cell Distribution Width 13.7 % (11.8-14.3); White Blood Cell 13.9 10^3/uL (4.4-10.8)
[2021-02-17 07:04] LABS: INR 1.02 (0.9-1.15); Partial Thromboplastin Time 23.5 sec (23.6-33.0)
[2021-02-17 07:07] LABS: Albumin 2.9 g/dL (3.4-5.0); Calcium 8.6 mg/dL (8.5-10.1); Magnesium 2.8 mg/dL (1.6-2.6); Potassium 4.3 mmol/L (3.5-5.1)
[2021-02-17] MEDS: LEVOTHYROXINE SODIUM 100 MCG TAB PO SCH (07:08)
[2021-02-17] MEDS: Ensure HIGH Protein Chocolate 8oz Bottle PO SCH ×3 (07:09→18:33)
[2021-02-17 07:10] LABS: BUN/Creatinine Ratio 32.7; Bilirubin, Total 0.6 mg/dL (0.2-1.0); Phosphorus 3.1 mg/dL (2.5-4.90); Total Protein 6.3 g/dL (6.4-8.2)
[2021-02-17] MEDS: ALBUTEROL SULF HFA 90MCG INH 200DOSE IN PRN ×2 (07:15→19:17)
[2021-02-17] MEDS: BUDESONIDE (INHALATION) 180 MCG IH IN SCH ×2 (07:16→19:17)
[2021-02-17] MEDS: CHOLECALCIFEROL (VITD3) 2,000 UNIT CAP/TAB PO SCH (10:09)
[2021-02-17] MEDS: PANTOPRAZOLE 40 MG TAB PO SCH (10:09)
[2021-02-17] MEDS: ASCORBIC ACID 1,000 MG TAB PO SCH (10:09)
[2021-02-17] MEDS: ZINC SULFATE 220mg CAP or TAB PO SCH (10:10)
[2021-02-17] MEDS: POTASSIUM EFFERVESENT TAB 25 MEQ PO SCH (10:10)
[2021-02-17] MEDS: APIXABAN 2.5 MG TAB PO SCH ×2 (10:10→22:14)
[2021-02-17] MEDS: FUROSEMIDE 40 MG/4 ML VIAL IV SCH (10:11)
[2021-02-17] MEDS: DexAMETHasone SOD PHOS 10MG/1ML VIAL INJ IV SCH (10:11)
[2021-02-17] MEDS: ARIPIPRAZOLE 5 MG PO SCH (22:13)
[2021-02-17] MEDS: PARoxetine 20 MG TAB PO SCH (22:14)
[2021-02-18 05:00] VITALS: BP 138/86
[2021-02-18] MEDS: PIPERACILLIN-TAZOB 3.375GM 100 ML IV SCH ×3 (05:18→19:47)
[2021-02-18] MEDS: SALINE 0.65 % NASAL SPRAY 45ML BOTTLE EACHNOSTRI SCH ×4 (05:28→22:22)
[2021-02-18] MEDS: LEVOTHYROXINE SODIUM 100 MCG TAB PO SCH (05:28)
[2021-02-18 09:12] VITALS: BP 118/71
[2021-02-18] MEDS: BUDESONIDE (INHALATION) 180 MCG IH IN SCH ×2 (09:25→22:34)
[2021-02-18] MEDS: ALBUTEROL SULF HFA 90MCG INH 200DOSE IN PRN ×2 (09:25→22:34)
[2021-02-18] MEDS: FUROSEMIDE 40 MG/4 ML VIAL IV SCH (09:44)
[2021-02-18] MEDS: DexAMETHasone SOD PHOS 10MG/1ML VIAL INJ IV SCH (09:44)
[2021-02-18] MEDS: POTASSIUM EFFERVESENT TAB 25 MEQ PO SCH (09:45)
[2021-02-18] MEDS: CHOLECALCIFEROL (VITD3) 2,000 UNIT CAP/TAB PO SCH (09:45)
[2021-02-18] MEDS: ASCORBIC ACID 1,000 MG TAB PO SCH (09:45)
[2021-02-18] MEDS: APIXABAN 2.5 MG TAB PO SCH ×2 (09:45→22:23)
[2021-02-18] MEDS: PANTOPRAZOLE 40 MG TAB PO SCH (09:45)
[2021-02-18] MEDS: ZINC SULFATE 220mg CAP or TAB PO SCH (09:45)
[2021-02-18 12:53] VITALS: BP 113/71
[2021-02-18] MEDS: Ensure HIGH Protein Chocolate 8oz Bottle PO SCH ×3 (13:09→18:30)
[2021-02-18 17:14] VITALS: BP 105/73
[2021-02-18] MEDS: ARIPIPRAZOLE 5 MG PO SCH (22:22)
[2021-02-18] MEDS: PARoxetine 20 MG TAB PO SCH (22:23)
[2021-02-18 22:51] VITALS: BP 106/64
[2021-02-19] MEDS: PIPERACILLIN-TAZOB 3.375GM 100 ML IV SCH ×3 (04:51→20:37)
[2021-02-19 05:00] VITALS: BP 107/71
[2021-02-19] MEDS: SALINE 0.65 % NASAL SPRAY 45ML BOTTLE EACHNOSTRI SCH ×4 (05:44→22:25)
[2021-02-19] MEDS: LEVOTHYROXINE SODIUM 100 MCG TAB PO SCH (05:44)
[2021-02-19] MEDS: Ensure HIGH Protein Chocolate 8oz Bottle PO SCH ×3 (08:24→17:28)
[2021-02-19 09:00] VITALS: BP 134/71
[2021-02-19] MEDS: DexAMETHasone SOD PHOS 10MG/1ML VIAL INJ IV SCH (10:22)
[2021-02-19] MEDS: FUROSEMIDE 40 MG/4 ML VIAL IV SCH (10:22)
[2021-02-19] MEDS: POTASSIUM EFFERVESENT TAB 25 MEQ PO SCH (10:23)
[2021-02-19] MEDS: APIXABAN 2.5 MG TAB PO SCH ×2 (10:23→21:32)
[2021-02-19] MEDS: ASCORBIC ACID 1,000 MG TAB PO SCH (10:23)
[2021-02-19] MEDS: ZINC SULFATE 220mg CAP or TAB PO SCH (10:23)
[2021-02-19] MEDS: CHOLECALCIFEROL (VITD3) 2,000 UNIT CAP/TAB PO SCH (10:23)
[2021-02-19] MEDS: PANTOPRAZOLE 40 MG TAB PO SCH (10:23)
[2021-02-19] MEDS: ALBUTEROL SULF HFA 90MCG INH 200DOSE IN PRN ×2 (10:39→22:24)
[2021-02-19] MEDS: BUDESONIDE (INHALATION) 180 MCG IH IN SCH ×2 (10:39→22:24)
[2021-02-19 13:00] VITALS: BP 119/72
[2021-02-19 17:00] VITALS: BP 105/63
[2021-02-19] MEDS: PARoxetine 20 MG TAB PO SCH (21:32)
[2021-02-19] MEDS: ARIPIPRAZOLE 5 MG PO SCH (21:33)
[2021-02-19 22:00] VITALS: BP 102/70
[2021-02-20] MEDS: PIPERACILLIN-TAZOB 3.375GM 100 ML IV SCH ×2 (04:12→11:36)
[2021-02-20 05:30] VITALS: BP 123/77
[2021-02-20] MEDS: LEVOTHYROXINE SODIUM 100 MCG TAB PO SCH (06:30)
[2021-02-20] MEDS: SALINE 0.65 % NASAL SPRAY 45ML BOTTLE EACHNOSTRI SCH ×3 (06:30→17:52)
[2021-02-20] MEDS: ALBUTEROL SULF HFA 90MCG INH 200DOSE IN PRN (07:00)
[2021-02-20] MEDS: BUDESONIDE (INHALATION) 180 MCG IH IN SCH (07:00)
[2021-02-20 09:00] VITALS: BP 114/84
[2021-02-20] MEDS: POTASSIUM EFFERVESENT TAB 25 MEQ PO SCH (10:20)
[2021-02-20] MEDS: ZINC SULFATE 220mg CAP or TAB PO SCH (10:20)
[2021-02-20] MEDS: PANTOPRAZOLE 40 MG TAB PO SCH (10:20)
[2021-02-20] MEDS: APIXABAN 2.5 MG TAB PO SCH (10:20)
[2021-02-20] MEDS: Ensure HIGH Protein Chocolate 8oz Bottle PO SCH ×3 (10:20→17:52)
[2021-02-20] MEDS: DexAMETHasone SOD PHOS 10MG/1ML VIAL INJ IV SCH (10:20)
[2021-02-20] MEDS: ASCORBIC ACID 1,000 MG TAB PO SCH (10:21)
[2021-02-20] MEDS: CHOLECALCIFEROL (VITD3) 2,000 UNIT CAP/TAB PO SCH (10:21)
[2021-02-20] MEDS: FUROSEMIDE 40 MG/4 ML VIAL IV SCH (10:22)
[2021-02-20 13:00] VITALS: BP 101/76
[2021-02-20 17:00] VITALS: BP 117/73
[2021-02-20 17:12] VITALS: BP 114/84
[2021-02-20 17:26] VITALS: BP 117/73
== END 2021-02-20 18:57 | disposition home or self-care (01) | DRG 871 ==
LOC: ER 10:33 → TELE 20:51 → TELE-EAST 01-27 21:57
PROVIDERS: ADMIT Nurse Practitioner; ATTEND Internal Medicine
PROC: XW033E5 Introduction of Remdesivir Anti-infective into Peripheral Vein, Percutaneous Approach, New Technology Group 5 (ICD-10-PCS; principal; 2021-01-26)
PROC: XW033H5 Introduction of Tocilizumab into Peripheral Vein, Percutaneous Approach, New Technology Group 5 (ICD-10-PCS; 2021-01-28)
DX: A41.89 Other specified sepsis (principal); J96.01 Acute respiratory failure with hypoxia; J12.82 Pneumonia due to coronavirus disease 2019; U07.1 COVID-19; Z68.41 Body mass index [BMI] 40.0-44.9, adult; D89.839 Cytokine release syndrome, grade unspecified; I10 Essential (primary) hypertension; E66.01 Morbid (severe) obesity due to excess calories; F31.9 Bipolar disorder, unspecified; E03.9 Hypothyroidism, unspecified; Z90.49 Acquired absence of other specified parts of digestive tract
CPT/HCPCS: 36415; 36600; 71045; 76700; 80048; 80053; 81001; 81015; 82150; 82306; 82728; 82805; 83036; 83605; 83615; 83690; 83735; 84100; 84439; 84443; 84484; 85025; 85379; 85610; 85730; 86141; 86850; 86900; 86901; 87040; 87081; 87426; 93005; 94640; 96365; 96366; 96368; 96372; 96375; G0378; J0696; J1100; J2543

== ENCOUNTER 2022-12-23 11:34 | Emergency (ER) | payer OTHER, MEDICAID ==
[~2022-12-23] VITALS: Ht 175.3 cm; Wt 127.3 kg
[~2022-12-23 11:34] MED LIST: AMLO1TAB22 PO; ARIP5TAB36 PO; ATOR20TA50 PO; BECL80AE11 INH; CETI-120 PO; CLON0.5T4 PO; FLUT50SP NAS; LEVO100T8 PO; PARO1TAB33 PO; SECU1INJ SC
[2022-12-23 12:07] LABS: Albumin 3.6 g/dL (3.4-5.0); Calcium 9.1 mg/dL (8.5-10.1); Potassium 4.3 mmol/L (3.5-5.1)
[2022-12-23 12:11] LABS: BUN/Creatinine Ratio 16.4 (10.0-20.0); Bilirubin, Total 0.3 mg/dL (0.2-1.0)
[2022-12-23 12:14] LABS: Urine Bacteria NONE SEEN /hpf (None Seen); Urine Blood Negative /uL (Negative); Urine Mucus FEW (None Seen); Urine Specific Gravity 1.022 (1.001-1.035); Urine WBC 1 /hpf (0 - 3)
[2022-12-23 12:50] LABS: Basophils # (auto) 0 10 ^3/uL (0-0.2); Basophils % (auto) 0.5 % (0.0-2.0); Eosinophils # (auto) 0.1 10 ^3/uL (0-0.8); Eosinophils % (auto) 0.9 % (0.0-7.0); Hematocrit 49.6 % (41.0-53.0); Hemoglobin 16.5 g/dL (13.5-17.5); Lymphocytes # (auto) 1.8 10 ^3/uL (0.4-5.4); Lymphocytes % (auto) 23.3 % (10.0-50.0); Mean Corpuscular Hemoglobin 28.8 pg (28.0-32.0); Mean Corpuscular Hgb Conc. 33.3 g/dL (32.0-36.0); Mean Corpuscular Volume 86.4 fL (80.0-100.0); Monocytes # (auto) 0.6 10 ^3/uL (0-1.3); Monocytes % (auto) 7.7 % (0.0-12.0); Neutrophils # (auto) 5.3 10 ^3/uL (1.6-8.6); Neutrophils % (auto) 67.6 % (37.0-80.0); Nucleated Red Blood Cells % 0.2 %; Red Blood Cells 5.74 10^6/uL (4.5-5.90); White Blood Cell 7.9 10^3/uL (4.4-10.8)
[2022-12-23] MEDS ORDERED: IOHEXOL 350 MG/ML 100ML IJ ONE (15:49)
[2022-12-23] MEDS ORDERED: CEFD300C2 PO (17:14)
[2022-12-23 17:20] VITALS: BP 135/84; PULSE 91; RESP 16; TEMP 98; O2SAT 97
== END 2022-12-23 17:27 | disposition home or self-care (01) ==
LOC: ER 11:34
DX: R07.89 Other chest pain (principal); L40.50 Arthropathic psoriasis, unspecified; I87.2 Venous insufficiency (chronic) (peripheral); M19.90 Unspecified osteoarthritis, unspecified site; F32.9 Major depressive disorder, single episode, unspecified; I10 Essential (primary) hypertension; Z90.49 Acquired absence of other specified parts of digestive tract; Z98.890 Other specified postprocedural states; Z79.899 Other long term (current) drug therapy
CPT/HCPCS: 36415; 71046; 71275; 80053; 81001; 84484; 85025; 93005; 93971; 99285; Q9967